=== PATIENT | male | born 1980 ===

== ENCOUNTER → 2017-08-28 | Emergency (ER) | payer OTHER ==
[~2017-08-28] VITALS: Ht 180.3 cm; Wt 79.4 kg
== END | disposition left against medical advice (07) ==
LOC: ER 12:11
DX: S00.83XA Contusion of other part of head, initial encounter (principal); Y04.0XXA Assault by unarmed brawl or fight, initial encounter; Y93.89 Activity, other specified; Y92.89 Other specified places as the place of occurrence of the external cause; Y99.8 Other external cause status